=== PATIENT | male | born 1950 | race Caucasian/White ===

== ENCOUNTER → 2017-01-05 | Outpatient (CLI) | payer OTHER | LOC: FIMAGING 10:55 | PROVIDERS: ATTEND Nurse Practitioner | DX: Z13.820 Encounter for screening for osteoporosis (principal); Z51.81 Encounter for therapeutic drug level monitoring; G20 Parkinson's disease; Z21 Asymptomatic human immunodeficiency virus [HIV] infection status ==

== ENCOUNTER → 2018-03-18 | Outpatient (CLI) | payer OTHER | LOC: FIMAGING 14:51 | PROVIDERS: ATTEND Internal Medicine | DX: R07.81 Pleurodynia (principal); S22.42XA Multiple fractures of ribs, left side, initial encounter for closed fracture ==

== ENCOUNTER → 2018-09-15 | Outpatient (CLI) | payer OTHER | LOC: FIMAGING 09:01 | PROVIDERS: ATTEND Internal Medicine | DX: Z13.820 Encounter for screening for osteoporosis (principal); M81.0 Age-related osteoporosis without current pathological fracture; R29.890 Loss of height ==